=== PATIENT | male | born 1960 | race Two or more races ===

== ENCOUNTER 2022-11-08 05:20 | Day surgery (SDC) | payer OTHER | END 2022-11-08 13:20 | disposition home or self-care (01) | LOC: AMB-ENDOS 05:20 → EDBD 13:00 → AMB-ENDOS 13:20 | PROVIDERS: ATTEND Colon & Rectal Surgery | DX: Z87.19 Personal history of other diseases of the digestive system (principal); R19.5 Other fecal abnormalities; K57.30 Diverticulosis of large intestine without perforation or abscess without bleeding; K64.8 Other hemorrhoids; Z20.822 Contact with and (suspected) exposure to COVID-19 ==

== ENCOUNTER 2023-01-23 23:04 | Emergency (ER) | payer OTHER ==
[~2023-01-23] VITALS: Ht 180.3 cm; Wt 102.1 kg
[2023-01-23] MEDS ORDERED: AVAPRO300 MG (23:30)
[2023-01-23] MEDS ORDERED: PAXIL40 MG (23:30)
[2023-01-23] MEDS ORDERED: VALIUM (23:31)
[2023-01-23] MEDS ORDERED: NEURONTIN800 MG (23:31)
[2023-01-23] MEDS ORDERED: NORVASC10 MG (23:32)
[2023-01-23] MEDS ORDERED: TRAZODONE HCL150 MG (23:32)
[2023-01-23] MEDS ORDERED: APRESOLINE 10MG10 MG (23:32)
[2023-01-24] MEDS ORDERED: SIMETHICONE80 MG PO (12:42)
[2023-01-24] MEDS ORDERED: PEPCID AC20 MG PO (12:42)
[2023-01-24] MEDS ORDERED: METRONIDAZOLE500 MG PO (12:42)
== END 2023-01-24 12:55 | disposition home or self-care (01) ==
LOC: ER 23:04
DX: R11.0 Nausea (principal); R10.9 Unspecified abdominal pain